=== PATIENT | female | born 1945 | race Hispanic/Latino ===

== ENCOUNTER 2022-10-16 13:25 | Emergency (ER) | payer OTHER ==
[2022-10-16 15:15] LABS: Urine Blood Trace-intact (Negative); Urine Glucose Negative (Negative); Urine Protein Negative (Negative); Urine Specific Gravity 1.015 (1.005-1.030); Urine pH 8.5 (5.0-7.0)
[2022-10-16 15:26] LABS: Urine Bacteria <20 /HPF (<20); Urine Mucus Slight /HPF (None Seen); Urine RBC <5 /HPF (None Seen)
[2022-10-16] MEDS ORDERED: FENTANYL CITR 100 MCG/2 ML ONE (15:32)
[2022-10-16] MEDS ORDERED: ONDANSETRON 4 MG/2 ML VIAL ONE (15:33)
[2022-10-16] MEDS ORDERED: NA CHLORIDE 0.9% 500 ML ONE (15:33)
[2022-10-16 15:44] LABS: Absolute Lymphocytes (CBC) 2.7 K/uL (0.7-4.9); Hematocrit 37.8 % (36.0-45.0); Lymphocytes % 26.2 % (15.3-44.8); MCV 87.7 fL (80-100); MPV 8.4 fL (7.6-11.3); RBC Red Blood Cell Count 4.31 M/uL (3.86-4.86)
[2022-10-16 15:53] LABS: Albumin 3.5 g/dL (3.4-5.0); Bilirubin Total 0.4 mg/dL (0.2-1.0); Potassium 3.8 mmol/L (3.5-5.1); Protein, Total 8.8 g/dL (6.4-8.2)
--- NOTE | 2022-10-16 16:57 | RAD REPORT ---
EXAM DESCRIPTION: CTAbdomen Pelvis W Contrast - 10/16/2022 4:39 pm CLINICAL HISTORY: right lower abdomen/flank pain for 10 days COMPARISON: None TECHNIQUE: CT of the abdomen and pelvis was performed. All CT scans are performed using dose optimization technique as appropriate and may include automated exposure control or mA/KV adjustment according to patient size. FINDINGS: Lower chest: Nonspecific ground-glass opacities in the lung bases could reflect a prominen t chronic interstitial lung disease which is not well assessed due to motion. Circumferential thicken ed distal esophagus. Liver: Hepatic steatosis Biliary: No biliary ductal dilatation. Stomach: No significant focal abnormality. Duodenum: No significant focal abnormality. Pancreas: Atrophy. No focal mass. Spleen: No significant abnormality. Adrenal: No suspicious lesions. Kidney/ureter: No hydronephrosis. No renal calculi. Small left renal scar. Areas of apparent hypoatte nuation at the kidneys bilaterally probably due to artifact from the patient's arms. Retroperitoneum: No retroperitoneal adenopathy. Vascular: No aneurysm. Atherosclerosis. Bowel: No significant focal abnormality. Peritoneum: No ascites or free air. Bladder: Grossly unremarkable. Reproductive: 4.3 cm right adnexal cystic lesion. Bones: No acute fracture. Grade 1 anterolisthesis of L4 on L5. Other: n/a IMPRESSION: No acute intra-abdominal or pelvic finding. No urinary tract calculi. No appendix identi fied. Right adnexal cyst measuring 4.3 cm which is abnormal in a postmenopausal patient. Recommend nonemerg ent pelvic ultrasound.
--- NOTE | 2022-10-16 18:31 | EDPHYS ---
Physician Documentation [facility] Name: Soledad Casas Age: 77 yrs Sex: Female : 1945 Arrival Date: 10/16/2022 Time: 13:44 Bed 24 Private MD: ED Physician Carlos Manuel Helm HPI: 10/16 15:05 This 77 yrs old Female presents to ER via Wheelchair with complaints of cp Abdominal Pain - low, Back Pain, Flank Pain - right. 15:05 The patient presents with abdominal pain right lower quadrant, right flank. Onset: The cp symptoms/episode began/occurred 10 day(s) ago. The symptoms radiate to right back. Associated signs and symptoms: Pertinent negatives: blood in stools, chest pain, constipation, diarrhea, dysuria, fever, vomiting. The symptoms are described as constant. Severity of pain: in the emergency department the pain is unchanged despite home interventions. Historical: - Allergies: 14:59 PENICILLINS; ko1 - PSHx: 14:59 Appendectomy; ko1 - Immunization history:: Adult Immunizations unknown, Client reports receiving the 2nd dose of the Covid vaccine. - Social history:: Smoking status: Patient denies any tobacco usage or history of. ROS: 15:10 Constitutional: Negative for body aches, chills, fever, poor PO intake. cp 15:10 Eyes: Negative for injury, pain, redness, and discharge. cp 15:10 ENT: Negative for drainage from ear(s), ear pain, sore throat, difficulty swallowing, difficulty handling secretions. 15:10 Cardiovascular: Negative for chest pain, edema, palpitations. 15:10 Respiratory: Negative for cough, shortness of breath, wheezing. 15:10 Abdomen/GI: Positive for abdominal pain, Negative for vomiting, diarrhea, constipation, anorexia, black/tarry stool, rectal bleeding. 15:10 Back: Positive for radiated pain. 15:10 : Negative for urinary symptoms, vaginal bleeding. 15:10 Neuro: Negative for altered mental status, dizziness, headache, weakness. 15:10 All other systems are negative. Exam: 15:20 Constitutional: The patient appears in no acute distress, alert, awake, non-toxic, well cp developed, well nourished, uncomfortable. 15:20 Head/Face: Normocephalic, atraumatic. cp 15:20 Eyes: Periorbital structures: appear normal, Conjunctiva: normal, no exudate, no injection, Sclera: no appreciated abnormality, Lids and lashes: appear normal, bilaterally. 15:20 ENT: External ear(s): are unremarkable, Nose: is normal, Mouth: Lips: moist, Oral mucosa: pink and intact, moist, Posterior pharynx: Airway: no evidence of obstruction, patent. 15:20 Chest/axilla: Inspection: normal. 15:20 Cardiovascular: Rate: normal, Rhythm: regular, Edema: is not appreciated, JVD: is not appreciated. 15:20 Respiratory: the patient does not display signs of respiratory distress, Respirations: normal, no use of accessory muscles, no retractions, labored breathing, is not present, Breath sounds: are clear throughout, no decreased breath sounds, no stridor, no wheezing. 15:20 Abdomen/GI: Inspection: abdomen appears normal, Bowel sounds: active, all quadrants, Palpation: soft, in all quadrants, moderate abdominal tenderness, in the posterior aspect of right lateral abdomen, anterior aspect of right lateral abdomen and right lower quadrant, rebound tenderness, is not appreciated, involuntary guarding, is not appreciated. 15:20 Back: CVA tenderness, is absent. 15:20 Skin: cellulitis, is not appreciated, no rash present. 15:20 Neuro: Orientation: to person, place \T\ time. Mentation: is normal, Motor: moves all fours, strength is normal, Sensation: is normal, Gait: is steady, at a normal pace, without difficulty. Vital Signs: 15:05 BP 162 / 66; Pulse 65; Pulse Ox 98% on R/A; ko1 15:15 BP 154 / 61; Pulse 68; Resp 18; Temp 98.7(O); Pulse Ox 98% on R/A; Weight 58.97 kg (R); ko1 Height 4 ft. 9 in. (144.78 cm) (R); Pain 8/10; 16:00 BP 148 / 78; Pulse 62; Pulse Ox 99% on R/A; ko1 17:00 BP 150 / 68; Pulse 65; ko1 17:30 Pain 2/10; ko1 15:15 Body Mass Index 28.13 (58.97 kg, 144.78 cm) ko1 MDM: 14:44 Patient medically screened. 18:30 Data reviewed: vital signs, nurses notes, lab test result(s), radiologic studies, CT cp scan. 18:30 Differential diagnosis: bowel obstruction, diverticulitis, Peritonitis, Pyelonephritis, cp Ureterolithiasis, urinary tract infection. Counseling: I had a detailed discussion with the patient and/or guardian regarding: the historical points, exam findings, and any diagnostic results supporting the discharge/admit diagnosis, lab results, radiology results, the need for outpatient follow up, a family practitioner, to return to the emergency department if symptoms worsen or persist or if there are any questions or concerns that arise at home. Response to treatment: the patient's symptoms have markedly improved after treatment. Special discussion: Based on the patient's Hx, exam, and Dx evaluation, there is no indication for emergent surgery or inpatient Tx. It is understood by the patient/guardian that if the Sx's persist or worsen they need to return immediately for re-evaluation. ED course: VSS. Pain improved with meds. Discussed results of CT that showed adnexal mass and radiology recommendation of non-emergent US. Will discharge to home for continued monitoring. 10/16 15:00 Order name: CBC with Diff; Complete Time: 16: 10/16 15:00 Order name: CMP; Complete Time: 16: 10/16 18:02 Interpretation: Normal except: GLUC 123; CRE 1.18; GFR 48; TP 8.8; GLOB 5.3; A/G 0.7. 10/16 15:00 Order name: Lipase; Complete Time: 16: 10/16 15:00 Order name: Urine Microscopic Only; Complete Time: 16: 10/16 18:06 Interpretation: Reviewed. 10/16 15:00 Order name: Lactate w/ 2H reflex if indic.; Complete Time: 16: 10/16 15:15 Order name: Urine Dipstick-Ancillary; Complete Time: 16: EDMS 10/16 18:02 Interpretation: Normal except: UBLD Trace-intact; UPH 8.5; UESTR Trace. 10/16 15:00 Order name: IV Saline Lock; Complete Time: 15:29 10/16 15:00 Order name: Labs collected and sent; Complete Time: 15:29 10/16 15:00 Order name: Urine Dipstick-Ancillary (obtain specimen); Complete Time: 15:16 cp 10/16 16:02 Order name: CT Abd/Pelvis - IV Contrast Only cp 10/16 16:06 Order name: Abdomen ; Complete Time: 18:01 EDMS Administered Medications: 15:33 Drug: Zofran (Ondansetron) 4 mg Route: IVP; Site: left antecubital; ko1 15:33 Drug: NS 0.9% 500 ml Route: IV; Rate: calculated rate; Site: left antecubital; ko1 15:41 Drug: fentaNYL (PF) 25 mcg Route: IVP; Site: left antecubital; ko1 Disposition Summary: 10/16/22 18:30 Discharge Ordered Location: Home cp Problem: new cp Symptoms: have improved cp Condition: Stable cp Diagnosis - Right lower quadrant abdominal swelling, mass and lump cp - Right lower quadrant abdominal tenderness cp Followup: cp - With: Private Physician - When: 2 - 3 days - Reason: Recheck today's complaints Discharge Instructions: - Discharge Summary Sheet cp - Abdominal Pain, Adult cp Forms: - Medication Reconciliation Form cp - Thank You Letter cp - Antibiotic Education cp - Prescription Opioid Use cp Prescriptions: - Zofran 4 mg Oral Tablet - take 1 tablet by ORAL route every 12 hours As needed; 20 tablet; Refills: 0, cp Product Selection Permitted - dicyclomine 10 mg Oral Capsule - take 1 capsule by ORAL route 4 times per day; 30 capsule; Refills: 0, Product cp Selection Permitted Signatures: Dispatcher [employer] EDID Jimmy Cao PA PA cp Lakeisha Pinon RN RN ko1 Corrections: (The following items were deleted from the chart) 10/17 17:12 17:10 This 77 yrs old Female presents to ER via Wheelchair with complaints of cp Abdominal Pain - low, Back Pain, Flank Pain - right. cp
--- NOTE | 2022-10-16 18:31 | ER ---
Nurse's Notes [facility] Name: Soledad Casas Age: 77 yrs Sex: Female : 1945 Arrival Date: 10/16/2022 Time: 13:44 Bed 24 Private MD: Diagnosis: Right lower quadrant abdominal swelling, mass and lump;Right lower quadrant abdominal tenderness Presentation: 10/16 14:58 Chief complaint: Patient's son or daughter states: patient has had right lower ko1 abdominal pain for 10 days which has progressively gotten worse. Coronavirus screen: Vaccine status: Patient reports receiving the 2nd dose of the covid vaccine. At this time, the client does not indicate any symptoms associated with coronavirus-19. Ebola Screen: No symptoms or risks identified at this time. Initial Sepsis Screen: Does the patient meet any 2 criteria? No. Patient's initial sepsis screen is negative. Does the patient have a suspected source of infection? No. Patient's initial sepsis screen is negative. Risk Assessment: Do you want to hurt yourself or someone else? Patient reports no desire to harm self or others. Onset of symptoms was October 07, 2022. 14:58 Method Of Arrival: Wheelchair ko1 14:58 Acuity: JOHN 4 ko1 Triage Assessment: 14:59 General: Appears in no apparent distress. uncomfortable, Behavior is calm, cooperative, ko1 appropriate for age. Pain: Complains of pain in anterior aspect of right lateral abdomen and right lower quadrant. GI: Reports lower abdominal pain. Historical: - Allergies: 14:59 PENICILLINS; ko1 - PSHx: 14:59 Appendectomy; ko1 - Immunization history:: Adult Immunizations unknown, Client reports receiving the 2nd dose of the Covid vaccine. - Social history:: Smoking status: Patient denies any tobacco usage or history of. Screenin:05 Abuse screen: Denies threats or abuse. Denies injuries from another. Nutritional ko1 screening: No deficits noted. Tuberculosis screening: No symptoms or risk factors identified. Fall Risk None identified. Assessment: 15:05 General: Appears in no apparent distress. uncomfortable, Behavior is calm, cooperative, ko1 appropriate for age. Pain: Complains of pain in abdomen and right lower quadrant and anterior aspect of right lateral abdomen. Neuro: No deficits noted. Cardiovascular: No deficits noted. Respiratory: No deficits noted. GI: Bowel sounds present X 4 quads. Abd is soft and non tender X 4 quads. : No deficits noted. EENT: No deficits noted. Derm: No deficits noted. Musculoskeletal: No deficits noted. Vital Signs: 15:05 BP 162 / 66; Pulse 65; Pulse Ox 98% on R/A; ko1 15:15 BP 154 / 61; Pulse 68; Resp 18; Temp 98.7(O); Pulse Ox 98% on R/A; Weight 58.97 kg (R); ko1 Height 4 ft. 9 in. (144.78 cm) (R); Pain 8/10; 16:00 BP 148 / 78; Pulse 62; Pulse Ox 99% on R/A; ko1 17:00 BP 150 / 68; Pulse 65; ko1 17:30 Pain 2/10; ko1 15:15 Body Mass Index 28.13 (58.97 kg, 144.78 cm) ko1 ED Course: 13:44 Patient arrived in ED. am2 14:30 Jimmy Cao PA is PHCP. cp 14:30 Carlos Manuel Helm MD is Attending Physician. cp 14:59 Triage completed. ko1 15:01 Arm band placed on right wrist. ko1 15:05 Patient has correct armband on for positive identification. Placed in gown. Bed in low ko1 position. Call light in reach. Side rails up X 1. Adult w/ patient. Client placed on continuous cardiac and pulse oximetry monitoring. NIBP monitoring applied. 15:05 No provider procedures requiring assistance completed. ko1 15:15 Lakeisha Pinon, RN is Primary Nurse. ko1 15:16 Urine Microscopic Only Sent. ko1 15:28 Lactate w/ 2H reflex if indic. Sent. ko1 15:29 CBC with Diff Sent. ko1 15:29 CMP Sent. ko1 15:29 Lipase Sent. ko1 15:41 Inserted saline lock: 22 gauge in left antecubital area, using aseptic technique. Blood ko1 collected. 16:41 Abdomen In Process Unspecified. EDMS 18:47 IV discontinued, intact, bleeding controlled, No redness/swelling at site. Pressure ko1 dressing applied. Administered Medications: 15:33 Drug: Zofran (Ondansetron) 4 mg Route: IVP; Site: left antecubital; ko1 15:33 Drug: NS 0.9% 500 ml Route: IV; Rate: calculated rate; Site: left antecubital; ko1 15:41 Drug: fentaNYL (PF) 25 mcg Route: IVP; Site: left antecubital; ko1 Medication: 18:47 VIS not applicable for this client. ko1 Outcome: 18:30 Discharge ordered by . daniel 18:47 Discharged to home ambulatory, with family. ko1 18:47 Condition: improved 18:47 Discharge instructions given to patient, family, Instructed on discharge instructions, follow up and referral plans. medication usage, Demonstrated understanding of instructions, follow-up care, medications, Prescriptions given X 2. 18:48 Patient left the ED. ko1 Signatures: Dispatcher [employer] EDMS Jimmy Cao PA PA cp Moreno, Amanda am2 Lakeisha Pinon, RN RN ko1
[2022-10-16 23:03] VITALS: TEMP 98.7
[2022-10-16 23:04] VITALS: O2SAT 99
[2022-10-16 23:05] VITALS: BP 150/68
== END 2022-10-16 18:48 | disposition home or self-care (01) ==
LOC: ER 13:25
DX: R19.03 Right lower quadrant abdominal swelling, mass and lump (principal); Z88.0 Allergy status to penicillin
CPT/HCPCS: 85025; 36415; 83605; 83690; 80053; 74177; 96375; 96374; 99284; Q9967; J3010; J7040; J2405; 81003; 81015